=== PATIENT | male | born 1970 | race Caucasian/White ===

== ENCOUNTER 2024-11-12 09:46 | Inpatient (IN) | payer MEDICAID ==
[~2024-11-12] VITALS: Ht 162.6 cm; Wt 58.5 kg
[2024-11-12 13:29] LABS: BASOPHILS % 0.5 % (0.0-2.0); EOSINOPHILS % 0.9 % (0.0-5.0); HEMATOCRIT. 45.1 % (42.0-52.0); HEMOGLOBIN. 15.5 g/dL (14.0-18.0); LYMPHOCYTES % 22.3 % (20.0-50.0); MEAN CORPUSCULAR HEMOGLOBIN 29.8 pg (28.0-32.0); MEAN CORPUSCULAR HGB CONC 34.4 g/dL (31.0-37.0); MEAN CORPUSCULAR VOLUME 86.5 fL (80.0-94.0); MEAN PLATELET VOLUME 7.2 fl (7.4-10.4); MONOCYTES % 8.5 % (2.0-8.0); NEUTROPHILS % 67.8 % (40.0-76.0); PLATELET 368 x1000/uL (130-400); RED BLOOD CELL COUNT 5.21 mill/uL (4.7-6.1); RED CELL DISTRIBUTION WIDTH 13.5 % (11.6-14.6); WHITE BLOOD COUNT 9.7 x1000/uL (4.5-11.0)
[2024-11-12 13:40] LABS: PROTHROMBIN TIME 11.4 sec (9.6-11.0)
[2024-11-12 14:00] LABS: CHLORIDE 105 mEq/L (98-107); POTASSIUM 4.3 mEq/L (3.5-5.1); SODIUM 139 mEq/L (136-145)
[2024-11-12 14:01] LABS: CALCIUM 9.6 mg/dL (8.7-10.4); CARBON DIOXIDE 28 mEq/L (21-32)
[2024-11-12 14:06] LABS: CREATININE 1.2 mg/dL (0.6-1.3); GLUCOSE 104 mg/dL (70-105); UREA NITROGEN BLOOD 16 mg/dL (9-23)
[2024-11-12 14:07] LABS: TROPONIN I HIGH SENSITIVITY 9 ng/L (3.0-53)
[2024-11-12 14:10] LABS: ETHANOL BLOOD < 10 mg/dL (<10)
[2024-11-12] MEDS ORDERED: IBUP-2029 MT (15:33)
[2024-11-12] MEDS: CLOPIDOGREL 75MG TABLET PO ONE (17:55)
[2024-11-12] MEDS: ASPIRIN 81MG TABLET PO ONE (17:55)
[2024-11-12 18:41] VITALS: BP 138/82; PULSE 102; RESP 17; TEMP 36.8
[2024-11-12 20:00] VITALS: BP 134/80; PULSE 101; RESP 28; TEMP 36.7; O2SAT 99
[2024-11-12] MEDS ORDERED: DEXTROSE 50% WATER 50ML SYRINGE IV PRN (20:30)
[2024-11-12] MEDS: INSULIN LISPRO 100 UNITS/ML SUBCUT SCH (21:00)
[2024-11-12] MEDS: BLOOD SUGAR DIAGNOSTIC STRIP TEST SCH (21:35)
[2024-11-12] MEDS ORDERED: MAGNESIUM/ALUMINUM HYDROXIDE/SIMETHICONE 30ML UDC PO PRN (21:45)
[2024-11-12] MEDS ORDERED: ACETAMINOPHEN 325MG TABLET PO PRN (21:45)
[2024-11-12] MEDS ORDERED: DIPHENHYDRAMINE 50MG/ML VIAL IV PRN (21:45)
[2024-11-12] MEDS ORDERED: ZOLPIDEM TARTRATE 5MG TABLET PO PRN (21:45)
[2024-11-12] MEDS ORDERED: CLONIDINE 0.1MG TABLET PO PRN (21:45)
[2024-11-12] MEDS: SODIUM CHLORIDE 0.9% 3ML FLUSH IVF SCH (22:26)
[2024-11-12] MEDS ORDERED: IOHEXOL-350 100 ML BOTTLE ONE (23:37)
[2024-11-13] VITALS: BP 117/73; PULSE 90; RESP 17; TEMP 36.8; O2SAT 97
[2024-11-13 04:00] VITALS: BP 104/74; PULSE 89; RESP 17; TEMP 36.9; O2SAT 99
[2024-11-13] MEDS: ACETAMINOPHEN 325MG TABLET PO PRN (06:08)
[2024-11-13 08:00] VITALS: BP 119/60; PULSE 97; RESP 31; TEMP 36.8; O2SAT 99
[2024-11-13] MEDS: METFORMIN HCL 500MG TABLET PO SCH (08:31)
[2024-11-13] MEDS: ENOXAPARIN 40MG/0.4ML SYR SUBCUT SCH (08:31)
[2024-11-13] MEDS: ASPIRIN 81MG EC TABLET PO SCH (08:31)
[2024-11-13 09:32] LABS: CLARITY URINE CLEAR (CLEAR); COLOR URINE YELLOW (YELLOW); GLUCOSE URINE 3+ (NEGATIVE); KETONES URINE NEGATIVE (NEGATIVE); LEUKOCYTE ESTERASE URINE NEGATIVE (NEGATIVE); NITRITE URINE NEGATIVE (NEGATIVE); OCCULT BLOOD URINE NEGATIVE (NEGATIVE); PROTEIN URINE NEGATIVE (NEGATIVE); SPECIFIC GRAVITY URINE 1.035 (1.005-1.030)
[2024-11-13 09:58] LABS: BACTERIA URINE NONE SEEN; RBC URINE 0-2 /hpf (0-2); SQUAMOUS EPITHELIAL CELL URINE NONE SEEN /lpf (RARE/1+); WBC URINE 0-2 /hpf (0-2); YEAST URINE NONE SEEN
[2024-11-13 10:12] LABS: *AMPHETAMINES SCREEN URINE NEGATIVE (NEGATIVE); *BENZODIAZEPINES SCREEN URINE NEGATIVE (NEGATIVE)
[2024-11-13 10:13] LABS: *BARBITURATES SCREEN URINE NEGATIVE (NEGATIVE); *COCAINE SCREEN URINE NEGATIVE (NEGATIVE); CANNABINOID URINE SCREEN NEGATIVE (NEGATIVE); ECSTASY MDMA SCREEN URINE NEGATIVE (NEGATIVE); METHADONE URINE SCREEN NEGATIVE (NEGATIVE); OPIATES URINE SCREEN NEGATIVE (NEGATIVE); PHENCYCLIDINE URINE SCREEN NEGATIVE (NEGATIVE)
[2024-11-13 16:00] VITALS: BP 135/86; PULSE 93; RESP 22; TEMP 36.8; O2SAT 100
[2024-11-13 20:00] VITALS: BP 135/85; PULSE 98; RESP 22; TEMP 36.9; O2SAT 97
[2024-11-13] MEDS: ATORVASTATIN CALCIUM 40MG TABLET PO SCH (20:23)
[2024-11-13] MEDS: FAMOTIDINE 20MG TABLET PO SCH (20:23)
[2024-11-14] VITALS: BP 117/78; RESP 20; O2SAT 99
[2024-11-14 04:00] VITALS: BP 104/75; RESP 20; O2SAT 99
[2024-11-14 08:00] VITALS: BP 135/70; PULSE 98; RESP 25; TEMP 36.8; O2SAT 100
[2024-11-14 08:00] LABS: THYROID STIMULATING HORMONE 0.83 uIU/mL (0.55-4.78)
[2024-11-14 12:00] VITALS: BP 128/85; PULSE 99; RESP 19; TEMP 36.8; O2SAT 100
[2024-11-14] MEDS: METOPROLOL TARTRATE 25MG TABLET PO SCH (14:53)
[2024-11-14 16:00] VITALS: BP 116/65; PULSE 99; RESP 20; TEMP 36.8; O2SAT 99
[2024-11-14 20:00] VITALS: BP 126/78; PULSE 93; RESP 17; TEMP 36.8; O2SAT 97
[2024-11-14] MEDS: INSULIN GLARGINE 100 UNITS/ML SUBCUT SCH (23:15)
[2024-11-15] VITALS: BP 117/72; PULSE 85; RESP 20; TEMP 36.2; O2SAT 96
[2024-11-15 04:00] VITALS: BP 116/79; PULSE 94; RESP 21; TEMP 36.6; O2SAT 99
[2024-11-15] MEDS ORDERED: TETRACAINE/BENZOCAINE/BUTAMBEN 20 GM SPRAY MM ONE (09:20)
[2024-11-15] MEDS ORDERED: LIDOCAINE 2% 6ML GLYDO MM ONE (09:20)
[2024-11-15] MEDS ORDERED: FENTANYL CITRATE/PF 50MCG/ML 2ML VIAL ONE (10:11)
[2024-11-15] MEDS ORDERED: MIDAZOLAM HCL 2 MG/2 ML VIAL ONE (10:11)
[2024-11-15 12:00] VITALS: BP 100/77; PULSE 81; RESP 19; TEMP 36.7; O2SAT 97
[2024-11-15 16:00] VITALS: BP 127/95; PULSE 98; RESP 22; TEMP 37.2; O2SAT 98
[2024-11-15 20:00] VITALS: BP 136/87; PULSE 99; RESP 19; TEMP 37.1; O2SAT 100
[2024-11-15] MEDS: INSULIN GLARGINE 100 UNITS/ML SUBCUT SCH (21:15)
[2024-11-15] MEDS: ONDANSETRON HCL 4MG/2ML INJ IV PRN (21:22)
[2024-11-16] VITALS: BP 103/67; PULSE 85; RESP 25; TEMP 37.1; O2SAT 100
[2024-11-16 04:00] VITALS: BP 103/65; PULSE 90; RESP 31; TEMP 36.7; O2SAT 100
[2024-11-16 08:00] VITALS: BP 109/67; PULSE 85; RESP 20; TEMP 36.7; O2SAT 97
[2024-11-16 12:00] VITALS: BP 121/76; PULSE 87; RESP 15; TEMP 36.7; O2SAT 97
[2024-11-16 15:11] VITALS: BP 121/76; PULSE 87; TEMP 98.1; O2SAT 97
[2024-11-16 16:00] VITALS: BP 145/81; PULSE 97; RESP 14; TEMP 36.8; O2SAT 97
== END 2024-11-16 17:49 | disposition home or self-care (01) | DRG 45 ==
LOC: ER 10:28 → 3WST 17:00 → EDBEDREQTM 17:05 → EDBEDREQ 17:05
PROVIDERS: ADMIT Internal Medicine; ATTEND Internal Medicine
PROC: 4A00X4Z Measurement of Central Nervous Electrical Activity, External Approach (ICD-10-PCS; principal; 2024-11-14)
DX: I63.9 Cerebral infarction, unspecified (principal); D69.6 Thrombocytopenia, unspecified; E11.9 Type 2 diabetes mellitus without complications; E78.00 Pure hypercholesterolemia, unspecified; R79.1 Abnormal coagulation profile; R47.01 Aphasia; I10 Essential (primary) hypertension; Z86.73 Personal history of transient ischemic attack (TIA), and cerebral infarction without residual deficits; Z79.899 Other long term (current) drug therapy; Z79.84 Long term (current) use of oral hypoglycemic drugs; Z79.82 Long term (current) use of aspirin; Z79.4 Long term (current) use of insulin
CPT/HCPCS: 36415; 70496; 70498; 70551; 71045; 80048; 80061; 80305; 80320; 81003; 82962; 83036; 84443; 84484; 85025; 92523; 93005; 93306; 93312; 95816; 97162; 99291; A4606; J1650; J1815; J2250; J2405; J3010; Q9967; G0480